=== PATIENT | male | born 1985 | race Caucasian/White ===

== ENCOUNTER 2024-02-01 18:24 | Emergency (ER) | payer MEDICAID ==
[~2024-02-01] VITALS: Ht 175.3 cm; Wt 61.2 kg
[2024-02-01 18:57] VITALS: BP 124/88; PULSE 58; RESP 17; TEMP 98.5; O2SAT 100
[2024-02-01] MEDS: DexAMETHasone SOD PHOS 10MG/1ML VIAL INJ IM ONE (19:19)
[2024-02-01] MEDS: KETOROLAC TROMETH 60MG/2ML VIAL IM ONE (19:20)
[2024-02-01] MEDS: HYDROcodone-ACET 5/325MG TAB PO ONE (19:20)
--- NOTE | 2024-02-01 20:00 | DVH ---
CLINICAL INDICATION: RADICULOPATY LEFT LEG l5-S1 TECHNIQUE: 3 radiographic views of the lumbar spine were obtained. Comparison: None FINDINGS/IMPRESSION: There is no evidence of acute fracture or dislocation. Intervertebral disc space narrowing at L5-S1. The alignment is anatomical. There is no radiopaque foreign body.
[2024-02-01] MEDS ORDERED: TIZA4CAP PO (20:29)
[2024-02-01] MEDS ORDERED: METH4PAK PO (20:29)
[2024-02-01] MEDS ORDERED: HYDR-4902 PO (20:30)
--- NOTE | 2024-02-01 20:33 | ED.PDOC ---
Back pain HPI HPI Comments This is a 38-year-old male presents to the ED chief complaint left lower back pain. Patient states history of sciatica acute on chronic pain, reports no known injury that aggravated it. He is complaining of left lower back pain sharp in nature shooting down into left glute down posterior leg to ankle. He rates it 10/10 on pain scale. States last time this happened was about a year ago. He notes went away with [id number] medications. States has been taking counter medications for the past day or 2 with 0 relief. He denies any numbness, weakness, loss of bowel or bladder control, or saddle anesthesia. Chief Complaint: Lower Extremity Time Seen by MD: 18:33 Primary Care Provider: UNKNOWN Reviewed Notes: Nurses Notes, Medications, Allergies Allergies: Coded Allergies: NO KNOWN ALLERGIES (Unverified , 02/01/24) Home Meds Active Scripts Tizanidine Hydrochloride (Zanaflex) 4 Mg Cap, 1 CAP PO BID PRN for 5 Days, #10 CAP Prov:CHASE TERRELL [facility] 02/01/24 Methylprednisolone (Medrol Dosepak) 4 Mg Harjeet, 4 MG PO UD for 6 Days, #21 TAB UAD Prov:CHASE TERRELL [facility] 02/01/24 Information Source: Patient, Spouse Mode of Arrival: Ambulatory Past Medical History PAST MEDICAL HISTORY: Denies Surgical History: Denies all surgeries Family History Family History: Reviewed,noncontributory to illness Social History Smoker: Non-Smoker Alcohol: Denies ETOH Use Drugs: Denies Drug Use Constitutional: denies: chills, diaphoresis, fatigue, fever, malaise, sweats, weakness, others EENTM: denies: blurred vision, double vision, ear bleeding, ear discharge, ear drainage, ear pain, ear ringing, eye pain, eye redness, hearing loss, mouth pain, mouth swelling, nasal discharge, nose bleeding, nose congestion, nose pain, photophobia, tearing, throat pain, throat swelling, voice changes, others Respiratory: denies: cough, hemoptysis, orthopnea, SOB at rest, shortness of breath, SOB with excertion, stridor, wheezing, others Cardiovascular: denies: chest pain, dizzy spells, diaphoresis, Dyspnea on exertion, edema, irregular heart beat, left arm pain, lightheadedness, palpitations, PND, syncope, others Gastrointestinal: denies: abdomen distended, abdominal pain, blood streaked bowels, constipated, diarrhea, dysphagia, difficulty swallowing, hematemesis, melena, nausea, poor appetite, poor fluid intake, rectal bleeding, rectal pain, vomiting, others Genitourinary: denies: burning, dysuria, flank pain, frequency, hematuria, incontinence, penile discharge, penile sore, pain, testicle pain, testicle swelling, urgency, others Neurological: denies: dizziness, fainting, headache, left sided numbness, left sided weakness, numbness, paresthesia, pre-existing deficit, right sided numbness, right sided weakness, seizure, speech problems, tingling, tremors, weakness, others Musculoskeletal: reports: back pain; denies: gout, joint pain, joint swelling, muscle pain, muscle stiffness, neck pain, others Integumetry: denies: bruises, change in color, change in hair/nails, dryness, laceration, lesions, lumps, rash, wounds, others Allergic/Immunocompromised: denies: Difficulty Healing, Frequent Infections, Hives, Itching, others Hematologic/Lymphatic: denies: anemia, blood clots, easy bleeding, easy bruising, swollen glands, others Endocrine: denies: excessive hunger, excessive sweating, excessive thirst, excessive urination, flushing, intolerance to cold, intolerance to heat, unexplained weight gain, unexplained weight loss, others Psychiatric: denies: anxiety, bipolar disorder, depression, hopeless, panic disorder, schizophrenia, sleepless, suicidal, others Physical Exam General Appearance: No Apparent Distress, Normal HEENT: Pharynx Normal Neck: Full Range of Motion, Non-Tender Respiratory: Lungs Clear, No Respiratory Distress, Normal Breath Sounds Cardiovascular: No Murmur, Normal Peripheral Pulses, Regular Rate/Rhythm Breast Exam: Deferred Gastrointestinal: Non Tender, Soft Genitalia: Deferred Pelvic: Deferred Rectal: Deferred Extremities: Normal capillary refill, Normal inspection, Normal range of motion, Non-tender, No pedal edema Musculoskeletal : Location: Left Extremity Location: Back (Moderate tenderness palpated over left-sided paraspinal muscles L 3 to L5 with noted spasms positive straight leg raise left side negative straight leg raise right side. Strength motion and sensory intact positive pedal pulses.) Apperance: Normal Neurologic: Alert, senior biostatistician/group leader II-XII nml as Tested, No Motor Deficits, Normal Affect, Normal Mood, No Sensory Deficits Cerebellar Function: Normal Reflexes: Normal Skin: Dry, Normal Color, Warm Lymphatic: No Adenopathy Was a procedure done? Was a procedure done?: No Back Pain Differential Dx Differential Diagnosis: Fracture, Musculoskeletal Pain X-Ray, Labs, Meds, VS Vital Signs Date Time Temp Pulse Resp B/P (MAP) Pulse Ox O2 Delivery O2 Flow Rate FiO2 02/01/24 18:57 98.5 58 17 124/88 (100) 100 98.5 02/01/24 18:57 58 17 100 Room Air 02/01/24 18:39 98.5 58 17 124/88 (100) 100 Current Medications Medications (Trade) Dose Ordered Sig/Gloria Route Start Time Stop Time Status Last Admin Ketorolac Tromethamine (Toradol Injection) 60 mg ONCE ONCE IM 02/01/24 19:15 02/01/24 19:16 DC 02/01/24 19:20 Dexamethasone Sodium Phosphate (Decadron Injection) 10 mg ONCE ONCE IM 02/01/24 19:15 02/01/24 19:16 DC 02/01/24 19:19 Acetaminophen/ Hydrocodone Bitart ([place] 5/325MG Tab) 1 tab ONCE ONCE PO 02/01/24 19:15 02/01/24 19:16 DC 02/01/24 19:20 X-Ray, Labs, Meds, VS Comment Patient given Toradol 60 mg IM and Decadron 10 mg IM reports relief in pain able to stand and sit without moderate discomfort. Requesting discharge at this time. We will send a script for Medrol Dosepak and a muscle relaxer. Advised to follow up with his PCP in 2-3 days for re-evaluation. Return to the ER for increasing pain, numbness, weakness, loss of bowel or bladder control, or saddle anesthesia. Patient And spouse agree with discharge plan of care. Time of 1ST Reevaluation: 20:26 Reevaluation 1ST: Improved Patient Education/Counseling: Diagnosis, Treatment, Prognosis, Need For Follow Up Family Education/Counseling: Diagnosis, Treatment, Prognosis, Need For Follow Up Departure 1 Departure Time of Disposition: 20:26 Impression: Primary Impression: Lumbar radiculopathy, acute Disposition: 01 HOME / SELF CARE / HOMELESS Condition: Stable e-Prescriptions Tizanidine Hydrochloride (Zanaflex) 4 Mg Cap 1 CAP PO BID PRN for 5 Days, #10 CAP Prov: CHASE TERRELL 02/01/24 Methylprednisolone (Medrol Dosepak) 4 Mg Harjeet 4 MG PO UD for 6 Days, #21 TAB UAD Prov: CHASE TERRELL 02/01/24 Discharged With: Spouse Critical Care Note Critical Care Time?: No Stability Stability form required: No CHASE TERRELL Feb 01, 2024 20:33
== END 2024-02-01 20:47 | disposition home or self-care (01) ==
LOC: ER 18:24
DX: M54.16 Radiculopathy, lumbar region (principal)
CPT/HCPCS: 72100; 96372; 99284; J1100; J1885

== ENCOUNTER 2024-02-06 09:07 | Inpatient (IN) | payer MEDICAID, OTHER ==
[~2024-02-06] VITALS: Ht 175.3 cm; Wt 64.7 kg
[~2024-02-06 09:07] MED LIST: METH4PAK PO; TIZA4CAP PO
--- NOTE | 2024-02-06 10:02 | ED.PDOC ---
Back pain HPI HPI Comments 38 year old gentlemen presents for back pain Reports no trauma or injury Pain has been present for months but reports symptoms have gradually worsened throughout the last week Reports pain actually started in June, went to urgent care and was prescribed a muscle relaxer with some improvement. Medication is no longer working at this time Patient was seen at this facility four days ago for back pain and was discharged same day with steroids and Zanaflex with no improvement pain is located to the mid lower back and radiates down the left posterior side Pain rated 10/10 at this time Denies history of chronic steroid use or history of osteoporosis Denies any history of cancer Denies fevers chills night sweats nausea vomiting unintentional weight loss Denies IV drug use history of HIV/TB Denies abdominal "tearing" pain Denies syncope Denies urinary incontinence or urinary changes Denies numbness tingling of the groin or inner thigh Denies previous back procedure or surgery Chief Complaint: Back Pain Time Seen by MD: 09:31 Primary Care Provider: UNKNOWN Reviewed Notes: Nurses Notes, Medications, Allergies Allergies: Coded Allergies: NO KNOWN ALLERGIES (Unverified , 02/06/24) Information Source: Patient Mode of Arrival: Ambulatory Past Medical History PAST MEDICAL HISTORY: Denies Surgical History: Denies all surgeries Family History Family History: Reviewed,noncontributory to illness Social History Smoker: Non-Smoker Alcohol: Denies ETOH Use Drugs: Denies Drug Use All Other Systems: Reviewed and Negative (Per HPI) Physical Exam General Appearance: No Apparent Distress, Normal HEENT: Normal ENT Inspection, Pharynx Normal, TMs Normal Neck: Full Range of Motion, Non-Tender, Normal, Normal Inspection Respiratory: Chest Non-Tender, Lungs Clear, No Accessory Muscle Use, No Respiratory Distress, Normal Breath Sounds Cardiovascular: No Edema, No JVD, No Murmur, No Gallop, Normal Peripheral Pulses, Regular Rate/Rhythm Breast Exam: Deferred Gastrointestinal: No Organomegaly, Non Tender, No Pulsatile Mass, Normal Bowel Sounds, Soft Genitalia: Deferred Pelvic: Deferred Rectal: Deferred Extremities: No calf tenderness, Normal capillary refill, Normal inspection, Normal range of motion, Non-tender, No pedal edema Musculoskeletal : Extremity Location: Back (No gross abnormality on inspection. No midline tenderness. No bony step-offs on palpation. Pain with lateral movements forward flexion and hyperextension) Apperance: Normal Neurologic: Alert, camera engineer II-XII nml as Tested, No Motor Deficits, Normal Affect, Normal Mood, No Sensory Deficits Cerebellar Function: Normal Reflexes: Normal Skin: Dry, Normal Color, Warm Lymphatic: No Adenopathy Was a procedure done? Was a procedure done?: No Back Pain Differential Dx Differential Diagnosis: Musculoskeletal Pain, Other X-Ray, Labs, Meds, VS Vital Signs Date Time Temp Pulse Resp B/P (MAP) Pulse Ox O2 Delivery O2 Flow Rate FiO2 02/06/24 10:37 66 18 125/89 02/06/24 10:04 77 18 99 Room Air 02/06/24 10:04 98.3 77 122/77 (92) 99 98.3 02/06/24 09:20 98.3 77 18 122/77 (92) 99 Lab Test 02/06/24 10:25 02/06/24 10:08 Range/Units White Blood Count 8.2 4.4-10.8 10^3/uL Red Blood Count 5.00 4.5-5.90 10^6/uL Hemoglobin 15.4 13.5-17.5 g/dL Hematocrit 44.9 41.0-53.0 % Mean Corpuscular Volume 89.7 80.0-100.0 fL Mean Corpuscular Hemoglobin 30.9 28.0-32.0 pg Mean Corpuscular Hemoglobin Concent 34.4 32.0-36.0 g/dL Red Cell Distribution Width 13.8 11.8-14.3 % Platelet Count 260 140-450 10^3/uL Mean Platelet Volume 8.1 6.9-10.8 fL Neutrophils (%) (Auto) 68.9 37.0-80.0 % Lymphocytes (%) (Auto) 23.1 10.0-50.0 % Monocytes (%) (Auto) 6.4 0.0-12.0 % Eosinophils (%) (Auto) 1.1 0.0-7.0 % Basophils (%) (Auto) 0.5 0.0-2.0 % Neutrophils # (Auto) 5.6 1.6-8.6 10 ^3/uL Lymphocytes # (Auto) 1.9 0.4-5.4 10 ^3/uL Monocytes # (Auto) 0.5 0-1.3 10 ^3/uL Eosinophils # (Auto) 0.1 0-0.8 10 ^3/uL Basophils # (Auto) 0 0-0.2 10 ^3/uL Nucleated Red Blood Cells 0.1 % Sodium Level 143 136-145 mmol/L Potassium Level 4.0 3.5-5.1 mmol/L Chloride Level 109 H 98-107 mmol/L Carbon Dioxide Level 27 20-31 mmol/L Anion Gap 7 5-15 Blood Urea Nitrogen 17 9-23 mg/dL Creatinine 0.84 0.700-1.30 mg/dL Glomerular Filtration Rate Calc 116 >90 mL/min BUN/Creatinine Ratio 20.2 H 10.0-20.0 Serum Glucose 93 74-106 mg/dL Calcium Level 9.5 8.7-10.4 mg/dL C-Reactive Protein High Sensitivity < 0.02 <1.0 mg/dL Urine Color Light-yellow Yellow Urine Clarity Clear Clear Urine pH 6.0 5.0-9.0 Urine Specific [place] 1.030 1.001-1.035 Urine Protein Negative Negative Urine Ketones Negative Negative Urine Blood Negative Negative /uL Urine Nitrite Negative Negative Urine Bilirubin Negative Negative Urine Urobilinogen Normal Negative mg/dL Urine Leukocyte Esterase Negative Negative /uL Urine RBC <1 0 - 3 /hpf Urine WBC <1 0 - 3 /hpf Urine Squamous Epithelial Cells None seen <5 /hpf Urine Bacteria None seen None Seen /hpf Urine Mucus Few None Seen Urine Glucose Normal Normal mg/dL Current Medications Medications (Trade) Dose Ordered Sig/Gloria Route Start Time Stop Time Status Last Admin Morphine Sulfate 2 mg ONCE ONCE IM 02/06/24 10:00 02/06/24 10:18 DC 02/06/24 10:37 PATIENT: MICHAEL MANNCCT: [id number]: [id number] : 1985 LOC: ER ROOM / BED: / AGE / SEX: 38 / M ADM STATUS: REG ER SERVICE 1004 ORDERING PHYSICIAN: ERIC HOUGH NP PROCEDURE(s): LS2CT - LS SPINE WO CONTRAST REASON: BP ORDER NUMBER(s): [id number], ACCESSION NUMBER(s): [id number] EXAM: CT LS SPINE WO CONTRAST INDICATION: BP COMPARISON: Lumbar spine radiographs 02/01/2024 TECHNIQUE: Multiple axial CT images of the lumbar spine were obtained using bone algorithm. Axial and coronal reformatting was done. Bone and soft tissue windows were reviewed. Radiation Dose Information: CT Dose: CTDI volume is 7.76 mGy. Dose-length product is 273.2 mGy*cm FINDINGS: No CT evidence of acute fracture. The visualized paraspinal soft tissues are grossly unremarkable. There is a posterior disc bulge at L5-S1 causing central canal stenosis to 0.7 cm. Mild narrowing of the L5-S1 disc space. Grade 1 retrolisthesis of L5 on S1. IMPRESSION: 1. L5-S1 posterior disc bulge causing moderate central canal stenosis. 2. Grade 1 retrolisthesis of L5 on S1. 3. No CT evidence of acute fracture. Radiation optimization: All CT scans at this facility use at least one of these dose optimization techniques: automated exposure control mA and/or kV adjustment per patient size (includes targeted exams where dose is matched to clinical indication) or iterative reconstruction. HS:Y ATED BY: VIANEY HERNÁNDEZ DO DICTATED DATE/TIME: 02/06/24 1037 SIGNED BY: VIANEY HERNÁNDEZ DO SIGNED DATE/TIME: 02/06/24 1037 CC: X-Ray, Labs, Meds, VS Comment This is a pleasant 38-year-old gentleman that presents with a chief complaint of worsening back pain over the last week. Reports he is unable to get adequate relief with medications prescribed. Patient had no improvement with steroids and muscle relaxers that were prescribed one week ago. After review of systems and physical examination labs and imaging were ordered. Morphine was ordered for pain management on re-evaluation patient reported improvement. CT findings show a bulging disc. Findings discussed with the patient. Based on show decision-making patient agrees for a possible admission for pain management and possible ortho consultation.. Time of 1ST Reevaluation: 11:40 Reevaluation 1ST: Improved Patient Education/Counseling: Diagnosis, Treatment Family Education/Counseling: Diagnosis, Treatment Departure 1 Departure Time of Disposition: 11:43 Impression: Primary Impression: Bulging disc Additional Impression: Back pain Qualified Codes: M54.42 - Lumbago with sciatica, left side Disposition: 09 ADMITTED INPATIENT Condition: Fair Critical Care Note Critical Care Time?: No Stability Stability form required: No Heart Score Heart Score: Heart Score Response (Comments) Value History N/A 0 EKG N/A 0 Age N/A 0 Risk Factors N/A 0 Troponin N/A 0 Total 0 ERIC HOUGH NP Feb 06, 2024 10:02
[2024-02-06] MEDS: MORPHINE SULFATE INJ 2 MG/ml SYRG IM ONE (10:37)
--- NOTE | 2024-02-06 10:40 | DVH ---
EXAM: CT LS SPINE WO CONTRAST INDICATION: BP COMPARISON: Lumbar spine radiographs 02/01/2024 TECHNIQUE: Multiple axial CT images of the lumbar spine were obtained using bone algorithm. Axial an d coronal reformatting was done. Bone and soft tissue windows were reviewed. Radiation Dose Information: CT Dose: CTDI volume is 7.76 mGy. Dose-length product is 273.2 mGy*cm FINDINGS: No CT evidence of acute fracture. The visualized paraspinal soft tissues are grossly unremarkable. There is a posterior disc bulge at L5-S1 causing central canal stenosis to 0.7 cm. Mild narrowing of the L5-S1 disc space. Grade 1 retrolisthesis of L5 on S1. IMPRESSION: 1. L5-S1 posterior disc bulge causing moderate central canal stenosis. 2. Grade 1 retrolisthesis of L5 on S1. 3. No CT evidence of acute fracture. Radiation optimization: All CT scans at this facility use at least one of these dose optimization ruben hniques: automated exposure control mA and/or kV adjustment per patient size (includes targeted exam s where dose is matched to clinical indication) or iterative reconstruction. HS:Y
[2024-02-06 10:55] LABS: Basophils # (auto) 0 10 ^3/uL (0-0.2); Basophils % (auto) 0.5 % (0.0-2.0); Eosinophils # (auto) 0.1 10 ^3/uL (0-0.8); Eosinophils % (auto) 1.1 % (0.0-7.0); Hematocrit 44.9 % (41.0-53.0); Hemoglobin 15.4 g/dL (13.5-17.5); Lymphocytes # (auto) 1.9 10 ^3/uL (0.4-5.4); Lymphocytes % (auto) 23.1 % (10.0-50.0); Mean Corpuscular Hemoglobin 30.9 pg (28.0-32.0); Mean Corpuscular Hgb Conc. 34.4 g/dL (32.0-36.0); Mean Corpuscular Volume 89.7 fL (80.0-100.0); Monocytes # (auto) 0.5 10 ^3/uL (0-1.3); Monocytes % (auto) 6.4 % (0.0-12.0); Neutrophils # (auto) 5.6 10 ^3/uL (1.6-8.6); Neutrophils % (auto) 68.9 % (37.0-80.0); Nucleated Red Blood Cells % 0.1 %; Platelet Count (auto) 260 10^3/uL (140-450); Red Cell Distribution Width 13.8 % (11.8-14.3); White Blood Cell 8.2 10^3/uL (4.4-10.8)
[2024-02-06 11:03] LABS: Urine Bacteria None Seen /hpf (None Seen)
[2024-02-06 11:06] LABS: Anion Gap 7 (5-15); Carbon Dioxide 27 mmol/L (20-31); Chloride 109 mmol/L (98-107); Sodium 143 mmol/L (136-145)
[2024-02-06 11:07] LABS: Calcium 9.5 mg/dL (8.7-10.4)
[2024-02-06 11:12] LABS: BUN/Creatinine Ratio 20.2 (10.0-20.0); Blood Urea Nitrogen 17 mg/dL (9-23); Glucose 93 mg/dL (74-106)
[2024-02-06 11:13] LABS: CRP High Sensitivity < 0.02 mg/dL (<1.0)
[2024-02-06 11:21] LABS: Urine Blood Negative /uL (Negative); Urine Clarity Clear (Clear); Urine Color Light-Yellow (Yellow); Urine Mucus FEW (None Seen); Urine Protein, UAD Negative (Negative); Urine Urobilinogen Normal (Negative); Urine WBC <1 /hpf (0 - 3)
[2024-02-06] MEDS: HYDROcodone-ACET 10/325MG TAB PO ONE (14:53)
[2024-02-06] MEDS ORDERED: MAALOX PLUS or MAALOX 30 ML PO PRN (16:00)
[2024-02-06] MEDS ORDERED: ONDANSETRON HCL 4 MG/2 ML VIAL IV PRN (16:00)
[2024-02-06] MEDS ORDERED: TEMAZEPAM 15 MG CAP PO PRN (16:00)
[2024-02-06] MEDS ORDERED: MORPHINE SULFATE INJ 2 MG/ml SYRG IV PRN (16:00)
[2024-02-06] MEDS ORDERED: ACETAMINOPHEN 325 MG TAB PO PRN (16:00)
[2024-02-06] MEDS ORDERED: DOCUSATE SOD 100 MG CAP PO PRN (16:00)
[2024-02-06] MEDS ORDERED: LORazepam 0.5 MG TAB PO PRN (16:00)
--- NOTE | 2024-02-06 16:11 | DVHHP2 ---
History of Present Illness Reason for Visit: Back pain History of Present Illness 38 yo male with severe back pain and limited mobility states having severe pain uncontrollable with no stated cause states that he has no occurrence of injury that he can remember or think of that could have caused the back pain Review of Systems Constitutional: No: Fever, Chills, Sweats, Weakness, Malaise, Other Eyes: No: Pain, Vision change, Conjunctivae inflammation, Eyelid inflammation, Other, Redness ENT: No: Ear pain, Ear discharge, Nose pain, Nose discharge, Nose congestion, Mouth pain, Mouth swelling, Throat pain, Throat swelling, Other Respiratory: No: Cough, Dry, Shortness of breath, SOB with excertion, Wheezing, Hemoptysis, Pleuritic Pain, Sputum, Wheezing, Other Cardiovascular: No: Chest Pain, Palpitations, Orthopnea, Paroxysmal Noc. Dyspnea, Edema, Lt Headedness, Other Gastrointestinal: No: Nausea, Vomiting, Abdominal Pain, Diarrhea, Constipation, Melena, Hematochezia, Other Genitourinary: No Dysuria, No Frequency, No Incontinence, No Hematuria, No Retention, No Other Musculoskeletal: back pain; No: other, neck pain, shoulder pain, arm pain, hand pain, leg pain, foot pain Skin: No: Rash, Lesions, Jaundice, Bruising, Other Neurological: No: Weakness, Numbness, Incoordination, Change in speech, Confusion, Seizures, Other Allergies: Coded Allergies: NO KNOWN ALLERGIES (Unverified , 02/06/24) Exam Vital Signs Vital Signs Date Time Temp Pulse Resp B/P (MAP) Pulse Ox O2 Delivery O2 Flow Rate FiO2 02/06/24 13:44 80 18 117/75 (89) 99 02/06/24 10:04 Room Air 02/06/24 10:04 98.3 98.3 General Appearance: Alert, Oriented X3 HEENT: PERRLA Respiratory: Clear to auscultation, Normal air movement Cardiovascular: Regular rate, Normal S1, Normal S2 Abdominal: Normal bowel sounds, Soft, No tenderness Extremities: No clubbing, No cyanosis, No edema Skin: No rashes, No breakdown Neuro: Normal gait, Normal speech Psych/Mental Status: Mental status NL, Mood NL Labs/Xrays Labs Test 02/06/24 10:25 02/06/24 10:08 Range/Units White Blood Count 8.2 4.4-10.8 10^3/uL Red Blood Count 5.00 4.5-5.90 10^6/uL Hemoglobin 15.4 13.5-17.5 g/dL Hematocrit 44.9 41.0-53.0 % Mean Corpuscular Volume 89.7 80.0-100.0 fL Mean Corpuscular Hemoglobin 30.9 28.0-32.0 pg Mean Corpuscular Hemoglobin Concent 34.4 32.0-36.0 g/dL Red Cell Distribution Width 13.8 11.8-14.3 % Platelet Count 260 140-450 10^3/uL Mean Platelet Volume 8.1 6.9-10.8 fL Neutrophils (%) (Auto) 68.9 37.0-80.0 % Lymphocytes (%) (Auto) 23.1 10.0-50.0 % Monocytes (%) (Auto) 6.4 0.0-12.0 % Eosinophils (%) (Auto) 1.1 0.0-7.0 % Basophils (%) (Auto) 0.5 0.0-2.0 % Neutrophils # (Auto) 5.6 1.6-8.6 10 ^3/uL Lymphocytes # (Auto) 1.9 0.4-5.4 10 ^3/uL Monocytes # (Auto) 0.5 0-1.3 10 ^3/uL Eosinophils # (Auto) 0.1 0-0.8 10 ^3/uL Basophils # (Auto) 0 0-0.2 10 ^3/uL Nucleated Red Blood Cells 0.1 % Sodium Level 143 136-145 mmol/L Potassium Level 4.0 3.5-5.1 mmol/L Chloride Level 109 H 98-107 mmol/L Carbon Dioxide Level 27 20-31 mmol/L Anion Gap 7 5-15 Blood Urea Nitrogen 17 9-23 mg/dL Creatinine 0.84 0.700-1.30 mg/dL Glomerular Filtration Rate Calc 116 >90 mL/min BUN/Creatinine Ratio 20.2 H 10.0-20.0 Serum Glucose 93 74-106 mg/dL Calcium Level 9.5 8.7-10.4 mg/dL C-Reactive Protein High Sensitivity < 0.02 <1.0 mg/dL Urine Color Light-yellow Yellow Urine Clarity Clear Clear Urine pH 6.0 5.0-9.0 Urine Specific [place] 1.030 1.001-1.035 Urine Protein Negative Negative Urine Ketones Negative Negative Urine Blood Negative Negative /uL Urine Nitrite Negative Negative Urine Bilirubin Negative Negative Urine Urobilinogen Normal Negative mg/dL Urine Leukocyte Esterase Negative Negative /uL Urine RBC <1 0 - 3 /hpf Urine WBC <1 0 - 3 /hpf Urine Squamous Epithelial Cells None seen <5 /hpf Urine Bacteria None seen None Seen /hpf Urine Mucus Few None Seen Urine Glucose Normal Normal mg/dL Assessment/Plan Assessment/Plan Admit to Med/surge Back Pain Bulging disc with L5 patient severe pain prn pain meds recommended surgical spine evaluation Plan discussed with: Patient My Orders Orders - RADHA SHULTZ MD Procedure Category Date Status Time Consultdr. Mich CONS 02/06/24 Transmitted [place](Spine) 15:57 Admit ADMIT 02/06/24 Verified 15:50 Code Status CODE 02/06/24 Verified 15:50 Vital Signs [facility] 02/06/24 Verified 15:50 Review Orders With [facility] 02/06/24 Verified Adm. 15:50 Regular Diet DIET 02/06/24 Verified Dinner Lorazepam Tablet [facility] 02/06/24 Verified (Ativan Tablet) 16:00 Alum & Mag PHA 02/06/24 Verified Hydrox-Simethicone 16:00 Docusate Sodium PH[facility] 02/06/24 Verified Capsule (Colace 16:00 Acetaminophen Tablet [facility] 02/06/24 Verified (Tylenol Tablet) 16:00 Temazepam (Restoril) [facility] 02/06/24 Verified 16:00 Notify Md Of Changes [facility] 02/06/24 Verified From Base 15:50 Advance Directive [facility] 02/06/24 Verified 15:50 Basic Metabolic Panel LAB 02/07/24 Verified 04:00 Complete Blood Count LAB 02/07/24 Verified 04:00 Patient Condition ORDERS 02/06/24 Verified 15:50 Allergies [facility] 02/06/24 Verified 15:50 Problem List: (1) Back pain (2) Bulging disc Date of Service: Feb 06, 2024 Billing Provider: RADHA SHULTZ MD Common Visit Codes: [id number] INP/OBS CARE (HIGH) RADHA SHULTZ MD Feb 06, 2024 16:10
--- NOTE | 2024-02-06 17:13 | DVHINCON2 ---
Consultation - Spinal Surgery Date Seen: Feb 06, 2024 Referring Physician Referring Physician Attending Doctor: Aram Hilario MD Reason for Consultation Reason for Visit: Back pain History of Present Illness History of Present Illness History of Present Illness 38 yo male with severe back pain and limited mobility states having severe pain uncontrollable with no stated cause states that he has no occurrence of injury that he can remember or think of that could have caused the back pain. Patient states that in October of this year he was on a very long car ride about 10 hours he only stopped in 3 times and he started developing low back pain which radiated down his left gluteal muscle, left leg.. Patient was seen in the emergency room yesterday was sent home after being giving some steroids and pain pills. He returns today because there was no relief from the discomfort. CT scan shows a grade 1 spondylolisthesis at L5-S1 and a L5-S1 posterior disc bulge moderate central canal stenosis. Patient has discomfort with moving the left leg and increased pain while lifting thigh and extension and fixation of lower leg. Past Medical/Surgical History Past Medical/Surgical History PAST MEDICAL HISTORY: Denies Surgical History: Denies all surgeries Family and Social History Family and Social History Family History Family History: Reviewed,noncontributory to illness Social History Smoker: Non-Smoker Alcohol: Denies ETOH Use Drugs: Denies Drug Use Allergies and medications Allergies: Coded Allergies: NO KNOWN ALLERGIES (Unverified , 02/01/24) Home Meds Active Scripts Tizanidine Hydrochloride (Zanaflex) 4 Mg Cap, 1 CAP PO BID PRN for 5 Days, #10 CAP Prov:CHASE TERRELL STEAMFITTER 02/01/24 Methylprednisolone (Medrol Dosepak) 4 Mg Harjeet, 4 MG PO UD for 6 Days, #21 TAB UAD Prov:CHASE TERRELL STEAMFITTER 02/01/24 Review of systems Review of Systems: HEENT:Normal, CVS:Normal, RESPIRATORY:Normal, GI:Normal, :Normal, MSK:Normal, NEURO:Abnormal (pain to left scaral area ) Examination Vital signs Imaging PATIENT: EFREN MANN ACCT: [id number] UNIT: [id number] : 1985 LOC: OVERFLOW ROOM / BED: [address] [place] [address] / AGE / SEX: 38 / M ADM STATUS: ADM IN SERVICE 0000 ORDERING PHYSICIAN: YUVAL OG VP CLINICAL PROCEDURE(s): MSL - LUMBAR SPINE WO CONTRAST REASON: LBP CT BULG L5- S1 WITH LT LEG NUMBNESS ORDER NUMBER(s): [id number], ACCESSION NUMBER(s): [id number] MRI LUMBAR SPINE CLINICAL HISTORY: LBP CT BULG L5- S1 WITH LT LEG NUMBNESS TECHNIQUE: Multi planar, multi sequence MR images of the lumbar spine without intravenous contrast. Comparison: CT LS SPINE WO CONTRAST on DOS: 02/06/24 FINDINGS: The conus terminates at an appropriate level and demonstrates normal caliber and signal. The vertebral bodies demonstrate normal height and marrow signal. There is straightening of the lumbar lordosis. There is disc desiccation with moderate disc space narrowing at L5-S1. The paraspinal soft tissues appear within normal limits. At L1-L2, L2-L3, L3-L4 and L4-L5 there is no significant disc herniation. There is no spinal canal or significant foraminal stenosis. At L5-S1 there is disc bulge with superimposed 6 mm right paracentral and 4 mm left paracentral disc protrusions. There is no significant central canal stenosis. The protruding discs encroach on the lateral recesses, [id number]-left with likely mass effect on the bilateral descending S1 nerve roots. There is no significant foraminal stenosis. IMPRESSION: 1. Moderate degenerative disc changes at L5-S1 with right and left paracentral disc protrusions as described above. PATIENT: EFREN MANN ACCT: [id number] UNIT: [id number] : 1985 LOC: ER ROOM / BED: / AGE / SEX: 38 / M ADM STATUS: REG ER SERVICE 1004 ORDERING PHYSICIAN: ERIC HOUGH VP CLINICAL PROCEDURE(s): LS2CT - LS SPINE WO CONTRAST REASON: BP ORDER NUMBER(s): [id number], ACCESSION NUMBER(s): [id number] EXAM: CT LS SPINE WO CONTRAST INDICATION: BP COMPARISON: Lumbar spine radiographs 02/01/2024 TECHNIQUE: Multiple axial CT images of the lumbar spine were obtained using bone algorithm. Axial and coronal reformatting was done. Bone and soft tissue windows were reviewed. Radiation Dose Information: CT Dose: CTDI volume is 7.76 mGy. Dose-length product is 273.2 mGy*cm FINDINGS: No CT evidence of acute fracture. The visualized paraspinal soft tissues are grossly unremarkable. There is a posterior disc bulge at L5-S1 causing central canal stenosis to 0.7 cm. Mild narrowing of the L5-S1 disc space. Grade 1 retrolisthesis of L5 on S1. IMPRESSION: 1. L5-S1 posterior disc bulge causing moderate central canal stenosis. 2. Grade 1 retrolisthesis of L5 on S1. 3. No CT evidence of acute fracture. Radiation optimization: All CT scans at this facility use at least one of these dose optimization techniques: automated exposure control mA and/or kV adjustment per patient size (includes targeted exams where dose is matched to clinical indication) or iterative reconstruction. Vital Signs Date Time Temp Pulse Resp B/P (MAP) Pulse Ox O2 Delivery O2 Flow Rate FiO2 02/06/24 13:44 80 18 117/75 (89) 99 02/06/24 10:04 Room Air 02/06/24 10:04 98.3 98.3 Medications Current Medications Medications (Trade) Dose Ordered Sig/Gloria Route PRN Reason Start Time Stop Time Status Last Admin Lorazepam (Ativan Tablet) 0.5 mg Q6HP PRN PO ANXIETY 02/06/24 16:00 Al Hydrox/Mg Hydrox/Simethicone (Maalox Plus) 30 ml Q6HP PRN PO FOR STOMACH DISTRESS 02/06/24 16:00 Docusate Sodium (Colace Capsule) 100 mg BIDPRN PRN PO FOR CONSTIPATION 02/06/24 16:00 Acetaminophen (Tylenol Tablet) 650 mg Q6HP PRN PO PAIN SCALE 1-3 OR TEMP>100.4 02/06/24 16:00 Temazepam (Restoril) 15 mg QHSP PRN PO FOR INSOMNIA 02/06/24 16:00 Acetaminophen/ Hydrocodone Bitart ([place] 5/325MG Tab) 1 tab Q4HP PRN PO MODERATE PAIN (4-6 PAIN SCALE) 02/06/24 16:00 Ondansetron HCl (Zofran) 4 mg Q4HP PRN IV NAUSEA / VOMITING 02/06/24 16:00 Morphine Sulfate 2 mg Q4HPRN PRN IV SEVERE PAIN (7-10 PAIN SCALE) 02/06/24 16:00 Laboratory Labs Test 02/06/24 10:25 02/06/24 10:08 Range/Units White Blood Count 8.2 4.4-10.8 10^3/uL Red Blood Count 5.00 4.5-5.90 10^6/uL Hemoglobin 15.4 13.5-17.5 g/dL Hematocrit 44.9 41.0-53.0 % Mean Corpuscular Volume 89.7 80.0-100.0 fL Mean Corpuscular Hemoglobin 30.9 28.0-32.0 pg Mean Corpuscular Hemoglobin Concent 34.4 32.0-36.0 g/dL Red Cell Distribution Width 13.8 11.8-14.3 % Platelet Count 260 140-450 10^3/uL Mean Platelet Volume 8.1 6.9-10.8 fL Neutrophils (%) (Auto) 68.9 37.0-80.0 % Lymphocytes (%) (Auto) 23.1 10.0-50.0 % Monocytes (%) (Auto) 6.4 0.0-12.0 % Eosinophils (%) (Auto) 1.1 0.0-7.0 % Basophils (%) (Auto) 0.5 0.0-2.0 % Neutrophils # (Auto) 5.6 1.6-8.6 10 ^3/uL Lymphocytes # (Auto) 1.9 0.4-5.4 10 ^3/uL Monocytes # (Auto) 0.5 0-1.3 10 ^3/uL Eosinophils # (Auto) 0.1 0-0.8 10 ^3/uL Basophils # (Auto) 0 0-0.2 10 ^3/uL Nucleated Red Blood Cells 0.1 % Sodium Level 143 136-145 mmol/L Potassium Level 4.0 3.5-5.1 mmol/L Chloride Level 109 H 98-107 mmol/L Carbon Dioxide Level 27 20-31 mmol/L Anion Gap 7 5-15 Blood Urea Nitrogen 17 9-23 mg/dL Creatinine 0.84 0.700-1.30 mg/dL Glomerular Filtration Rate Calc 116 >90 mL/min BUN/Creatinine Ratio 20.2 H 10.0-20.0 Serum Glucose 93 74-106 mg/dL Calcium Level 9.5 8.7-10.4 mg/dL C-Reactive Protein High Sensitivity < 0.02 <1.0 mg/dL Urine Color Light-yellow Yellow Urine Clarity Clear Clear Urine pH 6.0 5.0-9.0 Urine Specific [place] 1.030 1.001-1.035 Urine Protein Negative Negative Urine Ketones Negative Negative Urine Blood Negative Negative /uL Urine Nitrite Negative Negative Urine Bilirubin Negative Negative Urine Urobilinogen Normal Negative mg/dL Urine Leukocyte Esterase Negative Negative /uL Urine RBC <1 0 - 3 /hpf Urine WBC <1 0 - 3 /hpf Urine Squamous Epithelial Cells None seen <5 /hpf Urine Bacteria None seen None Seen /hpf Urine Mucus Few None Seen Urine Glucose Normal Normal mg/dL Examination: GENERAL:Normal, HEENT:Normal, NECK:Normal, LUNGS:Normal, CVS:Normal, ABDOMEN:Normal, MSK:Normal, SKIN:Normal, NEURO:Abnormal, :Normal (Pain to left low back, glute and leg, painful to walk, weakness to leg.) Problem List/Assessment/Plan Problems: (1) Back pain (2) Bulging disc (3) Spondylitis (4) Muscle spasm of back (5) Herniated lumbar intervertebral disc Assessment and Plan 1. Moderate degenerative disc changes at L5-S1 with right and left paracentral disc protrusions as described above Patient does not need emergent spine surgery for this finding. He can be seen as a outpatient Patient may be discharged if his pain is controlled >recommend physical therapy out patient If the patient is not progressing then we will discuss other options Continue supportive care per admitting team's discretion Muscle relaxers to reduce spasms Pain medication to relieve discomfort Physical therapy evaluation and treatment recommendations Preliminary discussion of options presented to patient Call with questions Mary Og [facility] Orthopaedic Spine Surgery nurse practitioner For Dr Bel Simons - for staff use only Patient was examined, chart reviewed, labs evaluated, and diagnostic studies and findings analyzed. Case was discussed with Dr. Mich Simons who formulated the plan of care. This medical document was created using an electronic medical record system with [facility] EHR dictation system. Although this document has been carefully reviewed, there might still be some phonetic and typographical errors. These areas are purely typographical due to imperfections of the software programs, and do not reflect any compromise in the patient's medical care. Plan discussed with Plan discussed with: Patient, Other (Efren RN/ Logan Og RN) YUVAL OG VP CLINICAL Feb 06, 2024 17:13
[2024-02-06 17:15] VITALS: BP 117/66; PULSE 66; RESP 18; TEMP 97.9; O2SAT 95
[2024-02-06 19:30] VITALS: RESP 16; O2SAT 96
[2024-02-06] MEDS: CYCLOBENZAPRINE HCL 10 MG TAB PO SCH (19:46)
[2024-02-06] MEDS: HYDROcodone-ACET 5/325MG TAB PO PRN (21:21)
[2024-02-07 00:29] VITALS: BP 110/99; PULSE 72; RESP 18; TEMP 98.2; O2SAT 99
[2024-02-07 07:29] LABS: Anion Gap 8 (5-15); Carbon Dioxide 26 mmol/L (20-31); Chloride 107 mmol/L (98-107); Potassium 4.3 mmol/L (3.5-5.1); Sodium 141 mmol/L (136-145)
[2024-02-07 07:31] LABS: Calcium 9.4 mg/dL (8.7-10.4)
[2024-02-07 07:36] LABS: BUN/Creatinine Ratio 17.7 (10.0-20.0); Blood Urea Nitrogen 14 mg/dL (9-23); Glucose 90 mg/dL (74-106)
[2024-02-07 07:43] LABS: Basophils # (auto) 0 10 ^3/uL (0-0.2); Basophils % (auto) 0.5 % (0.0-2.0); Eosinophils # (auto) 0.2 10 ^3/uL (0-0.8); Eosinophils % (auto) 2.8 % (0.0-7.0); Hematocrit 43.3 % (41.0-53.0); Hemoglobin 14.7 g/dL (13.5-17.5); Lymphocytes # (auto) 3.1 10 ^3/uL (0.4-5.4); Lymphocytes % (auto) 39.5 % (10.0-50.0); Mean Corpuscular Hemoglobin 30.4 pg (28.0-32.0); Mean Corpuscular Hgb Conc. 33.9 g/dL (32.0-36.0); Mean Corpuscular Volume 89.4 fL (80.0-100.0); Monocytes # (auto) 0.7 10 ^3/uL (0-1.3); Monocytes % (auto) 8.3 % (0.0-12.0); Neutrophils # (auto) 3.8 10 ^3/uL (1.6-8.6); Neutrophils % (auto) 48.9 % (37.0-80.0); Nucleated Red Blood Cells % 0.1 %; Platelet Count (auto) 287 10^3/uL (140-450); Red Blood Cells 4.84 10^6/uL (4.5-5.90); Red Cell Distribution Width 13.8 % (11.8-14.3); White Blood Cell 7.9 10^3/uL (4.4-10.8)
[2024-02-07 08:00] VITALS: PULSE 65; RESP 18; O2SAT 98
--- NOTE | 2024-02-07 08:26 | DVH ---
MRI LUMBAR SPINE CLINICAL HISTORY: LBP CT BULG L5- S1 WITH LT LEG NUMBNESS TECHNIQUE: Multi planar, multi sequence MR images of the lumbar spine without intravenous contrast. Comparison: CT LS SPINE WO CONTRAST on DOS: 02/06/24 FINDINGS: The conus terminates at an appropriate level and demonstrates normal caliber and signal. The vertebra l bodies demonstrate normal height and marrow signal. There is straightening of the lumbar lordosis. There is disc desiccation with moderate disc space narrowing at L5-S1. The paraspinal soft tissues ap pear within normal limits. At L1-L2, L2-L3, L3-L4 and L4-L5 there is no significant disc herniation. There is no spinal canal or significant foraminal stenosis. At L5-S1 there is disc bulge with superimposed 6 mm right paracentral and 4 mm left paracentral disc protrusions. There is no significant central canal stenosis. The protruding discs encroach on the lat eral recesses, pnzrl-[id number]-taqt-left with likely mass effect on the bilateral descending S1 nerve r oots. There is no significant foraminal stenosis. IMPRESSION: 1. Moderate degenerative disc changes at L5-S1 with right and left paracentral disc protrusions as de scribed above. HS:Y
[2024-02-07] MEDS: DexAMETHasone SOD PHOS 10MG/1ML VIAL INJ IM ONE (10:33)
--- NOTE | 2024-02-07 12:31 | DVHPN2 ---
Reviewed: Care Plan, H&P, Labs, Medications, Previous Orders, Radiology Changes from previous H/P or p: No Changes Eyes: No Pain, No Vision change, No Conjunctivae inflammation, No Eyelid inflammation, No Other, No Redness ENT: No Ear pain, No Ear discharge, No Nose pain, No Nose discharge, No Nose congestion, No Mouth pain, No Mouth swelling, No Throat pain, No Throat swelling, No Other Cardiovascular: No Chest Pain, No Palpitations, No Orthopnea, No Paroxysmal Noc. Dyspnea, No Edema, No Lt Headedness, No Other Respiratory: No Cough, No Dry, No Shortness of breath, No SOB with excertion, No Wheezing, No Hemoptysis, No Pleuritic Pain, No Sputum, No Other Gastrointestinal: No Nausea, No Vomiting, No Abdominal Pain, No Diarrhea, No Constipation, No Melena, No Hematochezia, No Other Genitourinary: No Dysuria, No Frequency, No Incontinence, No Hematuria, No Retention, No Other Musculoskeletal: No other, No neck pain, No shoulder pain, No arm pain; back pain; No hand pain, No leg pain, No foot pain Skin: No Rash, No Lesions, No Jaundice, No Bruising, No Other Objective Vitals Vital Signs Date Time Temp Pulse Resp B/P (MAP) Pulse Ox O2 Delivery O2 Flow Rate FiO2 02/07/24 08:00 65 18 98 Room Air* 0 21 02/07/24 08:00 98.0 102/68 (79) 98.0 Medications Current Medications Medications Dose Ordered Sig/Gloria Route Start Time Stop Time Status Last Admin Dose Admin Lorazepam 0.5 mg Q6HP PRN PO 02/06/24 16:00 Al Hydrox/Mg Hydrox/Simethicone 30 ml Q6HP PRN PO 02/06/24 16:00 Docusate Sodium 100 mg BIDPRN PRN PO 02/06/24 16:00 Acetaminophen 650 mg Q6HP PRN PO 02/06/24 16:00 Temazepam 15 mg QHSP PRN PO 02/06/24 16:00 Acetaminophen/ Hydrocodone Bitart 1 tab Q4HP PRN PO 02/06/24 16:00 02/07/24 03:13 1 TAB Ondansetron HCl 4 mg Q4HP PRN IV 02/06/24 16:00 Cyclobenzaprine HCl 10 mg TID PO 02/06/24 22:00 02/07/24 08:32 10 MG Acetaminophen/ Hydrocodone Bitart 1 tab Q6HP PRN PO 02/06/24 17:30 Laboratory Results Laboratory Tests 02/07/24 06:24 Chemistry Test 02/07/24 06:24 Calcium Level 9.4 mg/dL (8.7-10.4) Urinalysis Test 02/06/24 10:08 Urine Color Light-yellow (Yellow) Urine Clarity Clear (Clear) Urine pH 6.0 (5.0-9.0) Urine Specific [place] 1.030 (1.001-1.035) Urine Protein Negative (Negative) Urine Ketones Negative (Negative) Urine Blood Negative /uL (Negative) Urine Nitrite Negative (Negative) Urine Bilirubin Negative (Negative) Urine Urobilinogen Normal mg/dL (Negative) Urine Leukocyte Esterase Negative /uL (Negative) Urine RBC <1 /hpf (0 - 3) Urine WBC <1 /hpf (0 - 3) Urine Squamous Epithelial Cells None seen /hpf (<5) Urine Bacteria None seen /hpf (None Seen) Urine Mucus Few (None Seen) Urine Glucose Normal mg/dL (Normal) Labs and/or images reviewed: Labs reviewed by me, Image(s) reviewed by me Assessment/Plan Assessment/Plan Acute on chronic low back pain Bulging disc Spondylitis DJD LS spine Herniated lumbar intervertebral disc, consult by spine surgeon appreciated Continue [place] and flexeril Plan discussed with: Patient Date of Service: Feb 07, 2024 Billing Provider: NAN NAGEL MD Common Visit Codes: [id number] INP/OBS CARE(HIGH) NAN NAGEL MD Feb 07, 2024 12:31
[2024-02-07] MEDS: HYDROcodone-ACET 10/325MG TAB PO PRN (21:14)
[2024-02-07 22:16] VITALS: BP 112/60; PULSE 75; RESP 18; TEMP 97.9; O2SAT 99
[2024-02-07 22:55] VITALS: PULSE 62; RESP 17; O2SAT 97
[2024-02-08 00:09] VITALS: BP 127/70; PULSE 61; RESP 20; TEMP 97.8; O2SAT 99
[2024-02-08 08:53] VITALS: BP 107/59; PULSE 65; RESP 17; TEMP 97.9; O2SAT 99
--- NOTE | 2024-02-08 11:53 | DVHPN2 ---
Reviewed: Care Plan, H&P, Labs, Medications, Previous Orders, Radiology Changes from previous H/P or p: No Changes Eyes: No Pain, No Vision change, No Conjunctivae inflammation, No Eyelid inflammation, No Other, No Redness ENT: No Ear pain, No Ear discharge, No Nose pain, No Nose discharge, No Nose congestion, No Mouth pain, No Mouth swelling, No Throat pain, No Throat swelling, No Other Cardiovascular: No Chest Pain, No Palpitations, No Orthopnea, No Paroxysmal Noc. Dyspnea, No Edema, No Lt Headedness, No Other Respiratory: No Cough, No Dry, No Shortness of breath, No SOB with excertion, No Wheezing, No Hemoptysis, No Pleuritic Pain, No Sputum, No Other Gastrointestinal: No Nausea, No Vomiting, No Abdominal Pain, No Diarrhea, No Constipation, No Melena, No Hematochezia, No Other Genitourinary: No Dysuria, No Frequency, No Incontinence, No Hematuria, No Retention, No Other Musculoskeletal: No other, No neck pain, No shoulder pain, No arm pain; back pain; No hand pain, No leg pain, No foot pain Skin: No Rash, No Lesions, No Jaundice, No Bruising, No Other Objective Vitals Vital Signs Date Time Temp Pulse Resp B/P (MAP) Pulse Ox O2 Delivery O2 Flow Rate FiO2 02/08/24 08:53 97.9 65 17 107/59 (75) 99 97.9 02/07/24 22:55 Room Air* 0 21 Medications Current Medications Medications Dose Ordered Sig/Gloria Route Start Time Stop Time Status Last Admin Dose Admin Lorazepam 0.5 mg Q6HP PRN PO 02/06/24 16:00 Al Hydrox/Mg Hydrox/Simethicone 30 ml Q6HP PRN PO 02/06/24 16:00 Docusate Sodium 100 mg BIDPRN PRN PO 02/06/24 16:00 Acetaminophen 650 mg Q6HP PRN PO 02/06/24 16:00 Temazepam 15 mg QHSP PRN PO 02/06/24 16:00 Acetaminophen/ Hydrocodone Bitart 1 tab Q4HP PRN PO 02/06/24 16:00 02/07/24 03:13 1 TAB Ondansetron HCl 4 mg Q4HP PRN IV 02/06/24 16:00 Cyclobenzaprine HCl 10 mg TID PO 02/06/24 22:00 02/08/24 06:00 10 MG Acetaminophen/ Hydrocodone Bitart 1 tab Q6HP PRN PO 02/06/24 17:30 02/08/24 06:41 1 TAB Laboratory Results Laboratory Tests 02/07/24 06:24 Urinalysis Test 02/06/24 10:08 Urine Color Light-yellow (Yellow) Urine Clarity Clear (Clear) Urine pH 6.0 (5.0-9.0) Urine Specific [place] 1.030 (1.001-1.035) Urine Protein Negative (Negative) Urine Ketones Negative (Negative) Urine Blood Negative /uL (Negative) Urine Nitrite Negative (Negative) Urine Bilirubin Negative (Negative) Urine Urobilinogen Normal mg/dL (Negative) Urine Leukocyte Esterase Negative /uL (Negative) Urine RBC <1 /hpf (0 - 3) Urine WBC <1 /hpf (0 - 3) Urine Squamous Epithelial Cells None seen /hpf (<5) Urine Bacteria None seen /hpf (None Seen) Urine Mucus Few (None Seen) Urine Glucose Normal mg/dL (Normal) Labs and/or images reviewed: Labs reviewed by me, Image(s) reviewed by me Assessment/Plan Assessment/Plan Acute on chronic low back pain Bulging disc Spondylitis DJD LS spine Herniated lumbar intervertebral disc, consult by spine surgeon appreciated Continue [place] and flexeril Plan discussed with: Patient Date of Service: Feb 08, 2024 Billing Provider: NAN NAGEL MD Common Visit Codes: [id number] INP/OBS CARE(HIGH) NAN NAGEL MD Feb 08, 2024 11:53
[2024-02-08] MEDS ORDERED: CYCL-837 PO (11:56)
[2024-02-08] MEDS ORDERED: HYDR-4902 PO (11:56)
--- NOTE | 2024-02-08 12:01 | DVHDS2 ---
Discharge Summary Date of Admission Feb 06, 2024 at 15:50 Date of Discharge: Feb 08, 2024 Admitting Diagnosis Exacerbation chronic low back pain Wounds: None Labs/Diagnostic Data: Laboratory Results Test 02/07/24 06:24 02/06/24 10:25 02/06/24 10:08 White Blood Count 7.9 10^3/uL (4.4-10.8) Red Blood Count 4.84 10^6/uL (4.5-5.90) Hemoglobin 14.7 g/dL (13.5-17.5) Hematocrit 43.3 % (41.0-53.0) Mean Corpuscular Volume 89.4 fL (80.0-100.0) Mean Corpuscular Hemoglobin 30.4 pg (28.0-32.0) Mean Corpuscular Hemoglobin Concent 33.9 g/dL (32.0-36.0) Red Cell Distribution Width 13.8 % (11.8-14.3) Platelet Count 287 10^3/uL (140-450) Mean Platelet Volume 8.3 fL (6.9-10.8) Neutrophils (%) (Auto) 48.9 % (37.0-80.0) Lymphocytes (%) (Auto) 39.5 % (10.0-50.0) Monocytes (%) (Auto) 8.3 % (0.0-12.0) Eosinophils (%) (Auto) 2.8 % (0.0-7.0) Basophils (%) (Auto) 0.5 % (0.0-2.0) Neutrophils # (Auto) 3.8 10 ^3/uL (1.6-8.6) Lymphocytes # (Auto) 3.1 10 ^3/uL (0.4-5.4) Monocytes # (Auto) 0.7 10 ^3/uL (0-1.3) Eosinophils # (Auto) 0.2 10 ^3/uL (0-0.8) Basophils # (Auto) 0 10 ^3/uL (0-0.2) Nucleated Red Blood Cells 0.1 % Sodium Level 141 mmol/L (136-145) Potassium Level 4.3 mmol/L (3.5-5.1) Chloride Level 107 mmol/L (98-107) Carbon Dioxide Level 26 mmol/L (20-31) Anion Gap 8 (5-15) Blood Urea Nitrogen 14 mg/dL (9-23) Creatinine 0.79 mg/dL (0.700-1.30) Glomerular Filtration Rate Calc 118 mL/min (>90) BUN/Creatinine Ratio 17.7 (10.0-20.0) Serum Glucose 90 mg/dL (74-106) Calcium Level 9.4 mg/dL (8.7-10.4) C-Reactive Protein High Sensitivity < 0.02 mg/dL (<1.0) Urine Color Light-yellow (Yellow) Urine Clarity Clear (Clear) Urine pH 6.0 (5.0-9.0) Urine Specific [place] 1.030 (1.001-1.035) Urine Protein Negative (Negative) Urine Ketones Negative (Negative) Urine Blood Negative /uL (Negative) Urine Nitrite Negative (Negative) Urine Bilirubin Negative (Negative) Urine Urobilinogen Normal mg/dL (Negative) Urine Leukocyte Esterase Negative /uL (Negative) Urine RBC <1 /hpf (0 - 3) Urine WBC <1 /hpf (0 - 3) Urine Squamous Epithelial Cells None seen /hpf (<5) Urine Bacteria None seen /hpf (None Seen) Urine Mucus Few (None Seen) Urine Glucose Normal mg/dL (Normal) Other Laboratory Tests 02/07/24 06:24 Brief Hx & Hospital Course: 8-year-old male with a chronic back pain admitted for exacerbation of the pain CT showed bulging disc in the lumbar to level history of DJD LS spine patient has a herniated lumbar intervertebral disc spine surgeon was consulted advised conservative management with the pain medications muscle relaxants. The patient feels better and being discharged home. Consults/Reason for consult Surgeon Dr. Simons Operations or Procedures CT LS spine Condition at Discharge: Fair Final Diagnosis/Problems List Acute on chronic low back pain Bulging disc Spondylitis DJD LS spine Herniated lumbar intervertebral disc, consult by spine surgeon appreciated Discharge Disposition: Home Discharge Instruct/Medications Diet: Regular Activity: See Comment Activity comment: Off work for one week Medications: [place] Flexeril Transmitted to the pharmacy 35 (Time taken for discharge summary 35 minutes) Discharge Statement: "Patient was advised to return to the ER or call 911 if any headaches, dizziness, shortness of breath, chest pain, abdominal pain, bleeding, fevers, or worsening of medical condition. Patient was counseled about treatment plan, medications, possible side effects, patientverbalized understanding. All questions were answered to the best of my ability. This discharge took greater then 30 minutes in planning, reviewing documentation, counseling the patient, and discussing with other team members." ASSESSMENT ASSESSMENT Hospital Course Improved Assessment Acute on chronic low back pain Bulging disc Spondylitis DJD LS spine Herniated lumbar intervertebral disc, consult by spine surgeon appreciated Date of Service: Feb 08, 2024 Billing Provider: NAN NAGEL MD Common Visit Codes: [id number] INP/OBS CARE(HIGH) NAN NAGEL MD Feb 08, 2024 12:01
[2024-02-08 13:00] VITALS: BP 112/65; PULSE 62; RESP 17; TEMP 97.9; O2SAT 100
== END 2024-02-08 15:11 | disposition home or self-care (01) | DRG 347 ==
LOC: ER 09:07 → EDUNIT# 15:50 → OVERFLOW 15:50 → EAST 02-07 22:55 → WEST WING 02-07 23:05
PROVIDERS: ADMIT Hospitalist; ATTEND Family Medicine
DX: M47.897 Other spondylosis, lumbosacral region (principal); G89.29 Other chronic pain; M51.26 Other intervertebral disc displacement, lumbar region; M43.17 Spondylolisthesis, lumbosacral region; M62.830 Muscle spasm of back; Z79.899 Other long term (current) drug therapy
CPT/HCPCS: 36415; 72131; 72148; 80048; 81001; 85025; 86141; 96372; G0378; J1100

== ENCOUNTER 2024-04-07 11:01 | Emergency (ER) | payer MEDICAID ==
[~2024-04-07] VITALS: Ht 175.3 cm; Wt 63.7 kg
[~2024-04-07 11:01] MED LIST changes: +CYCL-837 PO; +HYDR-4902 PO
[2024-04-07 12:46] VITALS: BP 127/62; TEMP 98.4
[2024-04-07] MEDS ORDERED: METH-1181 PO (14:04)
[2024-04-07] MEDS ORDERED: HYDR-4902 PO (14:04)
[2024-04-07] MEDS ORDERED: IBUP-1454 PO (14:04)
--- NOTE | 2024-04-07 14:05 | ED.PDOC ---
Back pain HPI HPI Comments 38 yo male with hx of chronic back pain presents for follow up. Patient states that in October of this year he was on a very long car ride about 10 hours he only stopped in 3 times and he started developing low back pain which radiated down his left gluteal muscle, left leg.. Patient was admitted recently for same complaint and was discharged and advised to f/u with PCP and neurosurg out patient. He returns today because there was no relief from the discomfort. Darby was helping but ran out of medication. Denies history of chronic steroid use or history of osteoporosis Denies any history of cancer Denies fevers chills night sweats nausea vomiting unintentional weight loss Denies IV drug use history of HIV/TB Denies abdominal "tearing" pain Denies syncope Denies urinary incontinence or urinary changes Denies numbness tingling of the groin or inner thigh Denies previous back procedure or surgery Chief Complaint: Back Pain Time Seen by MD: 12:32 Primary Care Provider: UNKNOWN Reviewed Notes: Nurses Notes, Medications Allergies: Coded Allergies: NO KNOWN ALLERGIES (Unverified , 02/01/24) Home Meds Active Scripts Hydrocodone-Acetaminophen (Hydrocodone Bitartrate/AC 5-325 mg) 1 Tab Tab, 1 TAB PO QID PRN, #30 TAB Prov:NAN NAEGL MD 02/08/24 Cyclobenzaprine Hcl (Cyclobenzaprine Hcl) 5 Mg Tab, 1 TAB PO TID, #30 TAB Prov:NAN NAGEL MD 02/08/24 Tizanidine Hydrochloride (Zanaflex) 4 Mg Cap, 1 CAP PO BID PRN for 5 Days, #10 CAP Prov:CHASE TERRELL 02/01/24 Methylprednisolone (Medrol Dosepak) 4 Mg Harjeet, 4 MG PO UD for 6 Days, #21 TAB UAD Prov:CHASE TERRELL 02/01/24 Information Source: Patient Mode of Arrival: Ambulatory Past Medical History PAST MEDICAL HISTORY: Denies Surgical History: Denies all surgeries Family History Family History: Reviewed,noncontributory to illness Social History Smoker: Non-Smoker Alcohol: Denies ETOH Use Drugs: Denies Drug Use All Other Systems: Reviewed and Negative (per hpi) Physical Exam General Appearance: No Apparent Distress, Normal HEENT: Normal ENT Inspection, Pharynx Normal, TMs Normal Neck: Full Range of Motion, Non-Tender, Normal, Normal Inspection Respiratory: Chest Non-Tender, Lungs Clear, No Accessory Muscle Use, No Respiratory Distress, Normal Breath Sounds Cardiovascular: No Edema, No JVD, No Murmur, No Gallop, Normal Peripheral Pulses, Regular Rate/Rhythm Breast Exam: Deferred Gastrointestinal: No Organomegaly, Non Tender, No Pulsatile Mass, Normal Bowel Sounds, Soft Genitalia: Deferred Pelvic: Deferred Rectal: Deferred Extremities: No calf tenderness, Normal capillary refill, Normal inspection, Normal range of motion, Non-tender, No pedal edema Musculoskeletal : Apperance: Normal Neurologic: Alert, ground operations superintendent II-XII nml as Tested, No Motor Deficits, Normal Affect, Normal Mood, No Sensory Deficits Cerebellar Function: Normal Reflexes: Normal Skin: Dry, Normal Color, Warm Lymphatic: No Adenopathy Was a procedure done? Was a procedure done?: No Back Pain Differential Dx Differential Diagnosis: Other X-Ray, Labs, Meds, VS Vital Signs Date Time Temp Pulse Resp B/P (MAP) Pulse Ox O2 Delivery O2 Flow Rate FiO2 04/07/24 12:46 98.4 118 20 127/62 (83) 97 98.4 04/07/24 11:05 98.9 125 16 137/89 (105) 99 X-Ray, Labs, Meds, VS Comment I considered cauda equina, spinal cord compression, vertebral malignancy/mets, acute spinal fracture, vertebral osteomyelitis, epidural abscess, infected or obstructed kidney stone, however this is less likely as the patient does not present with lower back pain red flags symptoms such as bowel or bladder dysfunction, saddle anesthesia, paresthesia, and without any history of malignancy or recent back trauma or spinal interventions. Therefore further imaging studies such as a lumbar MRI were not indicated on today's visit. Presentation most consistent with chronic back etiology. ED workup: Defer imaging and lab work for outpatient follow up at this time Disposition: Discharge. Strict return precautions discussed with the patient with full understanding. Supportive care advised (rest, ice, heat, NSAIDs, stretching exercises) Massage muscles with cold pack or ice for 20 minutes 4 times per day. Usually most useful if there is swelling during the first 48 hours Heating pad on the most painful area for 20 minutes to relieve muscle spasm Sleep and the most comfortable sleeping position (usually on the side with knees bent) Light stretching, no strenuous activity, avoid frequent bending, avoid carrying heavy objects Discussed possible benefits of yoga and acupuncture Return precautions discussed including Inability to walk/bear weight Paresthesia/weakness/leg pain Fecal/urinary incontinence Any worsening symptoms Time of 1ST Reevaluation: 14:01 Reevaluation 1ST: Improved Patient Education/Counseling: Diagnosis, Treatment Family Education/Counseling: Diagnosis, Treatment Departure 1 Departure Time of Disposition: 14:02 Impression: Primary Impression: Bulging disc Additional Impressions: Spondylitis Qualified Codes: M46.90 - Unspecified inflammatory spondylopathy, site unspecified Herniated lumbar intervertebral disc Disposition: 01 HOME / SELF CARE / HOMELESS Condition: Stable e-Prescriptions Ibuprofen (Ibuprofen) 600 Mg Tab 1 TAB PO TID for 10 Days, #30 TAB 0 Refills Prov: ERIC HOUGH NP 04/07/24 Methocarbamol (Methocarbamol) 500 Mg Tab 500 MG PO Q8HP PRN for 10 Days, #30 TAB 0 Refills Prov: ERIC HOUGH NP 04/07/24 Hydrocodone-Acetaminophen (Hydrocodone Bitartrate/AC 5-325 mg) 1 Tab Tab 1 TAB PO Q6HP PRN for 7 Days, #28 TAB 0 Refills Prov: ERIC HOUGH NP 04/07/24 Discharged With: Self Critical Care Note Critical Care Time?: No Stability Stability form required: No Heart Score Heart Score: Heart Score Response (Comments) Value History N/A 0 EKG N/A 0 Age N/A 0 Risk Factors N/A 0 Troponin N/A 0 Total 0 ERIC HOUGH NP Apr 07, 2024 14:05
[2024-04-07 14:12] VITALS: PULSE 120; RESP 16; O2SAT 99
== END 2024-04-07 14:18 | disposition home or self-care (01) ==
LOC: ER 11:01
DX: M51.369 Other intervertebral disc degeneration, lumbar region without mention of lumbar back pain or lower extremity pain (principal); M46.90 Unspecified inflammatory spondylopathy, site unspecified; Z79.899 Other long term (current) drug therapy

== ENCOUNTER 2024-04-13 19:22 | Emergency (ER) | payer MEDICAID ==
[~2024-04-13] VITALS: Ht 175.3 cm; Wt 63.3 kg
[2024-04-13 19:22] VITALS: BP 118/76; PULSE 120; RESP 20; O2SAT 98
[~2024-04-13 19:22] MED LIST changes: +IBUP-1454 PO; +METH-1181 PO
[2024-04-13] MEDS ORDERED: CYCLOBENZAPRINE HCL 10 MG TAB PO ONE (20:45)
--- NOTE | 2024-04-13 21:05 | ED.PDOC ---
History of Present Illness HPI Comments 38 y/o M, with a Hx of acute on chronic lower back pain, bulging and herniated disc, spondylitis, and DJD LS spine, presents with c/o back pain, today. Patient endorses on returning to the ED following 3x previous [facility] ED visits for chronic back pain that he has been having for the past 6 months following unprovoked initial onset. He inquires for admission for surgical evaluation for back surgery, again, after opting not to in lieu of outpatient physical therapy and [place] and Flexeril medication use during his previous hospital admission. Patient, now, states on no longer wanting to manage his symptoms with medications in addition no longer wanting to wait for his first physical therapy appointment on 04/25/24. He also comments on managing to obtain a neurosurgery referral but has, yet, to obtain an appointment for initial consultation with a specialist. Patient denies having any additional associated symptoms or modifying factors at this time. Chief Complaint: Back Pain Time Seen by MD: 20:40 Primary Care Provider: UNKNOWN Reviewed Notes: Nurses Notes, Medications, Allergies Allergies: Coded Allergies: NO KNOWN ALLERGIES (Unverified , 02/01/24) Home Meds Active Scripts Ibuprofen (Ibuprofen) 600 Mg Tab, 1 TAB PO TID for 10 Days, #30 TAB 0 Refills Prov:ERIC HOUGH LICENSED EMBALMER SUPERVISOR 04/07/24 Methocarbamol (Methocarbamol) 500 Mg Tab, 500 MG PO Q8HP PRN for 10 Days, #30 TAB 0 Refills Prov:ERIC HOUGH LICENSED EMBALMER SUPERVISOR 04/07/24 Hydrocodone-Acetaminophen (Hydrocodone Bitartrate/AC 5-325 mg) 1 Tab Tab, 1 TAB PO Q6HP PRN for 7 Days, #28 TAB 0 Refills Prov:ERIC HOUGH LICENSED EMBALMER SUPERVISOR 04/07/24 Hydrocodone-Acetaminophen (Hydrocodone Bitartrate/AC 5-325 mg) 1 Tab Tab, 1 TAB PO QID PRN, #30 TAB Prov:NAN NAGEL MD 02/08/24 Cyclobenzaprine Hcl (Cyclobenzaprine Hcl) 5 Mg Tab, 1 TAB PO TID, #30 TAB Prov:NAN NAGEL MD 02/08/24 Tizanidine Hydrochloride (Zanaflex) 4 Mg Cap, 1 CAP PO BID PRN for 5 Days, #10 CAP Prov:CHASE TERRELL ANIMAL WARDEN 02/01/24 Methylprednisolone (Medrol Dosepak) 4 Mg Harjeet, 4 MG PO UD for 6 Days, #21 TAB UAD Prov:CHASE TERRELL ANIMAL WARDEN 02/01/24 Information Source: Patient Mode of Arrival: Ambulatory Severity: Moderate Timing: Months Duration: Since onset Prehospital treatment: Other (see HPI) Past Medical History Past Medical History (Other): Acute on chronic low back pain, Bulging disc, Spondylitis, DJD LS spine, Herniated lumbar intervertebral disc, consult by spine surgeon appreciated Surgical History: Denies all surgeries Family History Family History: Reviewed,noncontributory to illness, Unknown Social History Smoker: Non-Smoker Alcohol: Denies ETOH Use Drugs: Denies Drug Use Lives In: Home Musculoskeletal: reports: back pain All Other Systems: Reviewed and Negative (negative unless otherwise stated above or in HPI) Physical Exam General Appearance: No Apparent Distress, Normal HEENT: Normal ENT Inspection, Pharynx Normal, TMs Normal Neck: Full Range of Motion, Non-Tender, Normal, Normal Inspection Respiratory: Chest Non-Tender, Lungs Clear, No Accessory Muscle Use, No Respiratory Distress, Normal Breath Sounds Cardiovascular: No Edema, No JVD, No Murmur, No Gallop, Normal Peripheral Pulses, Regular Rate/Rhythm Breast Exam: Deferred Gastrointestinal: No Organomegaly, Non Tender, No Pulsatile Mass, Normal Bowel Sounds, Soft Genitalia: Deferred Pelvic: Deferred Rectal: Deferred Extremities: No calf tenderness, Normal capillary refill, Normal inspection, Normal range of motion, Non-tender, No pedal edema Musculoskeletal : Location: Bilateral Extremity Location: Back (paraspinal) Apperance: Normal, Tenderness Neurologic: Alert, refueling ramp supervisor II-XII nml as Tested, No Motor Deficits, Normal Affect, Normal Mood, No Sensory Deficits Cerebellar Function: Normal Reflexes: Normal Skin: Dry, Normal Color, Warm Lymphatic: No Adenopathy Was a procedure done? Was a procedure done?: No Differential Dx Considerations may include: Acute on chronic low back pain, bulging disc, spondylitis, DJD, herniated lumbar intervertebral disc X-Ray, Labs, Meds, VS Vital Signs Date Time Temp Pulse Resp B/P (MAP) Pulse Ox O2 Delivery O2 Flow Rate FiO2 04/13/24 19:22 98.3 120 20 118/76 (90) 98 Time of 1ST Reevaluation: 21:10 Reevaluation 1ST: Unchanged Patient Education/Counseling: Diagnosis, Treatment Family Education/Counseling: No Family Present Additional Information I reviewed the following notes from patient's past medical encounters: previous ED visit physician notes on 04/07/2024, 02/06/2024, and 02/01/2024 and hospital admission discharge summary report on 02/08/2024 I discussed treatment and results with medical personnel Departure 1 Departure Time of Disposition: 22:33 (Patient with lumbar strain. Patient has outpatient follow up already with Neurosurgery and with physical therapy. Discussed with patient the treatment options. Patient then appears to have eloped.) Impression: Primary Impression: Lumbar radiculopathy Disposition: 07 LEFT AWOL/ELOPED Condition: Fair Critical Care Note Critical Care Time?: No Stability Stability form required: No Heart Score Heart Score: Heart Score Response (Comments) Value History N/A 0 EKG N/A 0 Age N/A 0 Risk Factors N/A 0 Troponin N/A 0 Total 0 I personally scribed for YAA MEZA MD ([email or web address]) on 04/13/24 at 21:05. Electronically submitted by Say Johnson ([email or web address]). YAA MEZA MD Apr 13, 2024 21:05
== END 2024-04-13 22:42 | disposition left against medical advice (07) ==
LOC: ER 19:22
DX: M54.16 Radiculopathy, lumbar region (principal); Z79.1 Long term (current) use of non-steroidal anti-inflammatories (NSAID); Z79.899 Other long term (current) drug therapy